=== PATIENT | female | born 1950 | race Caucasian/White ===

== ENCOUNTER 2022-01-14 08:32 | Observation (INO) ==
[~2022-01-14 08:32] MED LIST: Buffered Lidocaine 1% SYRIN 1 ml INTRADERM ONE; Famotidine IV 10 MG/ML 2 ml VIAL (20 mg) IV ONE; Ketamine HCL 50 mg/ml 10 ml VIAL (500 MG) ONE; Lactated Ringers 1000 ml BAG 1,000 ML IV SCH; Propofol 10 MG/ML 20 ML BTL ONE
[2022-01-14] MEDS ORDERED: Lidocaine 2% PF 5 ML VIAL ONE ×2 (08:33→09:47)
[2022-01-14] MEDS ORDERED: Bupivacaine 0.5% SDV PF 30ML VIAL ONE (08:33)
[2022-01-14] MEDS ORDERED: Famotidine IV 10 MG/ML 2 ml VIAL (20 mg) ONE (08:56)
[2022-01-14] MEDS ORDERED: ceFAZolin 2 GM in NS PREMIX 2 GM/100 ML BAG IVPB ONE (08:56)
[2022-01-14 09:16] LABS: INR 1.07 (0.86-1.15)
[2022-01-14] MEDS ORDERED: Midazolam 5 mg/5 ml VIAL 1 mg/ml 5 ml VIAL (5 mg) ONE (09:47)
[2022-01-14] MEDS ORDERED: fentaNYL 100 mcg/2 ml 50 MCG/ML VIAL ONE (09:47)
[2022-01-14] MEDS ORDERED: ROPIVACAINE 5 MG/ML 30 ML BTL (0.5%) ONE (09:48)
[2022-01-14] MEDS ORDERED: Ropivacaine 5 MG/ML 20 ML VIAL 0.5% (100 MG) ONE (10:26)
[2022-01-14] MEDS ORDERED: Midazolam 2 mg/2 ml VIAL 1 mg/ml 2 ml VIAL (2 mg) ONE (11:31)
[2022-01-14] MEDS ORDERED: Glycopyrrolate IV 0.2 MG/ML 1 ML VIAL ONE ×2 (11:57→12:34)
[2022-01-14] MEDS ORDERED: Phenylephrine 1% NASAL 15 ML BOT ONE (12:00)
[2022-01-14] MEDS ORDERED: Sterile Water for Inj 10 ML ONE (12:25)
[2022-01-14] MEDS ORDERED: Ondansetron 4 mg VIAL 2 MG/ML 2 ml VIAL ONE (12:30)
[2022-01-14] MEDS ORDERED: Morphine 4 MG/ML VIAL (1 ml) IV PRN (13:07)
[2022-01-14] MEDS ORDERED: Ondansetron ODT 4 mg TAB 4 MG TAB PO PRN (13:07)
[2022-01-14] MEDS ORDERED: Ondansetron 4 mg VIAL 2 MG/ML 2 ml VIAL IV PRN ×2 (13:07→13:48)
[2022-01-14] MEDS ORDERED: diPHENhydraMINE 25 mg TAB PO PRN (13:07)
[2022-01-14] MEDS ORDERED: Magnesium Hydroxide LIQ 30 ML UDC PO PRN (13:07)
[2022-01-14] MEDS ORDERED: Lactulose 30 ml UDC PO PRN (13:07)
[2022-01-14] MEDS ORDERED: diPHENhydraMINE IV 50 MG/ML 1 ml VIAL (BENADRYL) IV PRN (13:07)
[2022-01-14] MEDS ORDERED: LoraTADine 10 mg TAB (NF) PO PRN (13:12)
[2022-01-14] MEDS ORDERED: Albuterol HFA INHALER 8 gm MDI INH PRN (13:12)
[2022-01-14] MEDS ORDERED: Naloxone 0.4 mg VIAL 0.4 mg/ml 1 ml VIAL IV PRN (13:48)
[2022-01-14] MEDS ORDERED: fentaNYL 100 mcg/2 ml 50 MCG/ML VIAL IV PRN (13:48)
[2022-01-14] MEDS ORDERED: Lactated Ringers 1000 ml BAG 1,000 ML IV SCH (14:00)
[2022-01-14] MEDS ORDERED: ceFAZolin 1 GM ADVAN 1 GM in NS 0.9% 50 ML 50 ML IVPB SCH (14:00)
[2022-01-14] MEDS: ceFAZolin 1 GM in Dextrose 1 GM/50 ML BAG IVPB SCH (20:17)
[2022-01-14] MEDS: Magnesium Hydroxide LIQ 30 ML UDC PO SCH (20:21)
[2022-01-15] MEDS: ceFAZolin 1 GM in Dextrose 1 GM/50 ML BAG IVPB SCH ×2 (04:21→11:51)
[2022-01-15 06:23] LABS: Hematocrit 36 % (35-47); Hemoglobin 11.7 g/dL (12.0-16.0); Mean Platelet Volume 9.7 fL (7.4-10.4); Platelet Count 220 10^3/uL (150-450)
[2022-01-15 06:53] LABS: Calcium 8.1 mg/dL (8.6-10.3); Potassium 4.4 mmol/L (3.5-5.0); eGFR CKD-EPI 69.8 (>60)
[2022-01-15] MEDS: Magnesium Hydroxide LIQ 30 ML UDC PO SCH (08:34)
[2022-01-15] MEDS ORDERED: Vitamin THERAPEUTIC TAB PO SCH (09:00)
[2022-01-15 11:35] VITALS: BP 107/66
== END 2022-01-15 14:46 | disposition home or self-care (01) ==
LOC: SSU 08:32 → OR 08:32
PROVIDERS: ADMIT Orthopaedic Surgery Adult Reconstructive Orthopaedic Surgery; ATTEND Orthopaedic Surgery Adult Reconstructive Orthopaedic Surgery

== ENCOUNTER 2023-04-14 08:15 | Observation (INO) ==
[~2023-04-14 08:15] MED LIST changes: -Ketamine HCL 50 mg/ml 10 ml VIAL (500 MG) ONE; -Propofol 10 MG/ML 20 ML BTL ONE
[2023-04-14] MEDS ORDERED: fentaNYL 100 mcg/2 ml 50 MCG/ML VIAL ONE ×3 (08:23→14:50)
[2023-04-14] MEDS ORDERED: Midazolam 2 mg/2 ml VIAL 1 mg/ml 2 ml VIAL (2 mg) ONE (08:23)
[2023-04-14] MEDS ORDERED: Famotidine IV 10 MG/ML 2 ml VIAL (20 mg) ONE (08:24)
[2023-04-14] MEDS ORDERED: ceFAZolin *3* GM in NS PREMIX 3 GM/100 ML BAG IV ONE (08:24)
[2023-04-14 08:57] LABS: Rapid COVID-19 Molecular Undetected (Undetected)
[2023-04-14] MEDS ORDERED: Dexamethasone IV 4 MG/ML VIAL 1 ml VIAL ONE (09:07)
[2023-04-14] MEDS ORDERED: Lidocaine 2% PF 5 ML VIAL ONE (09:07)
[2023-04-14] MEDS ORDERED: Glycopyrrolate IV 0.2 MG/ML 1 ML VIAL ONE (09:07)
[2023-04-14] MEDS ORDERED: Ondansetron 4 mg VIAL 2 MG/ML 2 ml VIAL ONE (09:07)
[2023-04-14] MEDS ORDERED: ROPIVACAINE 5 MG/ML 30 ML BTL (0.5%) ONE ×2 (09:45→11:28)
[2023-04-14] MEDS ORDERED: Midazolam 5 mg/5 ml VIAL 1 mg/ml 5 ml VIAL (5 mg) ONE (09:45)
[2023-04-14] MEDS ORDERED: HYDROmorphone 1 MG/1 ML SYRINGE IV PRN (11:22)
[2023-04-14] MEDS ORDERED: Naloxone 0.4 mg VIAL 0.4 mg/ml 1 ml VIAL IV PRN (11:22)
[2023-04-14] MEDS ORDERED: fentaNYL 100 mcg/2 ml 50 MCG/ML VIAL IV PRN (11:22)
[2023-04-14] MEDS ORDERED: Ketamine HCL 50 mg/ml 10 ml VIAL (500 MG) ONE (12:14)
[2023-04-14] MEDS ORDERED: Ondansetron 4 mg VIAL 2 MG/ML 2 ml VIAL IV PRN (12:39)
[2023-04-14] MEDS ORDERED: Morphine 2 MG/ML SYRINGE IV PRN (12:39)
[2023-04-14] MEDS ORDERED: Ondansetron ODT 4 mg TAB 4 MG TAB PO PRN (12:39)
[2023-04-14] MEDS ORDERED: Magnesium Hydroxide LIQ 30 ML UDC PO PRN (12:39)
[2023-04-14] MEDS ORDERED: Lactulose 30 ml UDC PO PRN (12:39)
[2023-04-14] MEDS ORDERED: Propofol 10 MG/ML 20 ML BTL ONE ×2 (12:59→13:43)
[2023-04-14] MEDS ORDERED: Acetaminophen IV 1 GM/100ML 1,000 MG/100 ML BAG IV ONE (13:30)
[2023-04-14] MEDS ORDERED: Dextrose 50% Syringe 50 ml 25 GM/50 ML SYRINGE IV PUSH PRN (15:54)
[2023-04-14] MEDS ORDERED: Albuterol HFA INHALER 8 gm MDI INH PRN (16:17)
[2023-04-14] MEDS: Lactated Ringers 1000 ml BAG 1,000 ML IV SCH (16:46)
[2023-04-14] MEDS: Magnesium Hydroxide LIQ 30 ML UDC PO SCH (20:06)
[2023-04-14] MEDS: ceFAZolin 1 GM ADVAN 1 GM in NS 0.9% 50 ML 50 ML IVPB SCH (21:25)
[2023-04-15] MEDS: Lactated Ringers 1000 ml BAG 1,000 ML IV SCH (02:57)
[2023-04-15] MEDS: ceFAZolin 1 GM ADVAN 1 GM in NS 0.9% 50 ML 50 ML IVPB SCH ×2 (04:40→11:48)
[2023-04-15 07:07] LABS: Hematocrit 38.7 % (35-45); Hemoglobin 12.8 g/dL (11.5-14.3); Mean Platelet Volume 9.5 fL (7.5-11.2); Platelet Count 184 10^3/uL (150-450)
[2023-04-15 07:23] LABS: Calcium 8.3 mg/dL (8.6-10.3); Creatinine, Serum 0.74 mg/dL (0.51-0.95); Potassium 4.2 mmol/L (3.5-5.0); eGFR CKD-EPI 84.8 (>60)
[2023-04-15] MEDS: Magnesium Hydroxide LIQ 30 ML UDC PO SCH (08:32)
[2023-04-15] MEDS ORDERED: Vitamin THERAPEUTIC TAB PO SCH (09:00)
[2023-04-15] MEDS ORDERED: Cholecalciferol (VIT D3) 1,000 unit TAB PO SCH (09:00)
[2023-04-15 10:38] VITALS: BP 102/61
== END 2023-04-15 13:36 | disposition home or self-care (01) ==
LOC: OR 08:15 → SSU 08:15
PROVIDERS: ADMIT Student in an Organized Health Care Education/Training Program; ATTEND Orthopaedic Surgery Adult Reconstructive Orthopaedic Surgery